=== PATIENT | male | born 1945 | race Caucasian/White ===

== ENCOUNTER 2022-09-07 19:44 | Emergency (ER) | payer MEDICARE ==
[2022-09-07 20:12] VITALS: BP 154/66; PULSE 57
[2022-09-07] MEDS ORDERED: Acetaminophen 500 MG Tab PO ONE (20:15)
== END 2022-09-07 21:40 | disposition home or self-care (01) ==
LOC: DL.ED 19:44
DX: S52.502A Unspecified fracture of the lower end of left radius, initial encounter for closed fracture (principal); I10 Essential (primary) hypertension; Z88.0 Allergy status to penicillin; Z88.1 Allergy status to other antibiotic agents; Z88.6 Allergy status to analgesic agent; Z88.8 Allergy status to other drugs, medicaments and biological substances; Z79.899 Other long term (current) drug therapy; W18.39XA Other fall on same level, initial encounter
CPT/HCPCS: 29125; 73090; 99283; A9270

== ENCOUNTER 2022-09-09 15:52 | Emergency (ER) | payer MEDICARE ==
[2022-09-09] MEDS ORDERED: Acetaminophen/HYDROcodone 325-10 MG Tab PO ONE (16:01)
[2022-09-09 16:26] VITALS: BP 171/86; PULSE 77
== END 2022-09-09 16:26 | disposition home or self-care (01) ==
LOC: DL.ED 15:52
DX: M25.532 Pain in left wrist (principal); I10 Essential (primary) hypertension; Z88.0 Allergy status to penicillin; Z88.1 Allergy status to other antibiotic agents; Z88.6 Allergy status to analgesic agent; Z79.899 Other long term (current) drug therapy
CPT/HCPCS: 99283; A9270

== ENCOUNTER 2023-11-28 14:13 | Emergency (ER) | payer MEDICARE, OTHER ==
[2023-11-28 15:59] VITALS: BP 156/103; PULSE 86
[2023-11-28] MEDS ORDERED: Lidocaine 1% with EPINEPHrine 1:100,000 20 ML MDV INJECT ONE (16:57)
[2023-11-28] MEDS: Diphtheria,Pertussis(Acell),Tetanus Vaccine 0.5 ML Syringe IM ONE (17:03)
== END 2023-11-28 18:06 | disposition left against medical advice (07) ==
LOC: DL.ED 14:13
DX: Z53.21 Procedure and treatment not carried out due to patient leaving prior to being seen by health care provider (principal)
CPT/HCPCS: 90715

== ENCOUNTER 2024-08-24 12:14 | Observation (INO) | payer MEDICARE ==
[2024-08-24 12:56] LABS: BASOPHILS PERCENT AUTO 0.6 % (0.0-1.0); EOSINOPHILS PERCENT AUTO 0.4 % (1.0-3.0); HEMATOCRIT 39.9 % (40.0-54.0); HEMOGLOBIN 13.4 g/dL (14.0-18.0); LYMPHOCYTES PERCENT AUTO 12.9 % (20.5-50.1); MEAN CORPUSCULAR HEMOGLOBIN 29.8 pg (27.0-34.0); MEAN CORPUSCULAR HGB CONC 33.6 g/dL (33.0-35.0); MEAN CORPUSCULAR VOLUME 88.9 fL (80-100); MONOCYTES PERCENT AUTO 10.8 % (2-8); NEUTROPHILS PERCENT AUTO 75.3 % (42.2-75.2); PLATELET COUNT,PLT 319 10^3/uL (150-450); RED BLOOD CELL COUNT 4.49 10^6/uL (4.6-6.2); WHITE BLOOD CELL COUNT,WBC 5.3 10^3/uL (5.0-10.0)
[2024-08-24] MEDS: Aspirin 81 MG Tab.Chew PO ONE (12:56)
[2024-08-24 13:12] LABS: PROTHROMBIN TIME 10.6 SEC (9.0-12.0)
[2024-08-24 13:20] LABS: A/G RATIO 1.1; ALBUMIN 3.4 g/dL (3.4-5.0); BILIRUBIN TOTAL 0.9 mg/dL (0.2-1.0); BUN/CREATININE RATIO 10.1 (No establ ref range); CALCIUM 8.9 mg/dL (8.5-10.1); CREATININE 0.79 mg/dL (0.70-1.30); EST CRCL DRUG DOSING (CG) 69.2 mL/min; MAGNESIUM 1.8 mg/dL (1.8-2.4); PROTEIN TOTAL,TP 6.6 g/dL (6.4-8.2)
[2024-08-24 13:26] LABS: ANION GAP 3.7 mEq/L (7-13); POTASSIUM,K 3.7 mmol/L (3.5-5.1)
[2024-08-24 13:51] LABS: APPEARANCE,URINE CLEAR (CLEAR); BILIRUBIN,URINE NEGATIVE (NEGATIVE); COLOR,URINE YELLOW (YELLOW); GLUCOSE,URINE NEGATIVE (NEGATIVE); KETONES,URINE NEGATIVE (NEGATIVE); LEUKOCYTE ESTERASE,URINE NEGATIVE (NEGATIVE); NITRITE,URINE NEGATIVE (NEGATIVE); OCCULT BLOOD,URINE TRACE-INTACT (NEGATIVE); PROTEIN,URINE NEGATIVE (NEGATIVE); UROBILINOGEN,URINE 0.2 mg/dL (0.2-1.0)
[2024-08-24 13:58] LABS: MUCUS,URINE RARE /LPF (NOT SEEN)
[2024-08-24 13:59] LABS: WBC,URINE NOT SEEN /HPF (0-5/HPF)
[2024-08-24 14:00] LABS: BACTERIA,URINE RARE /HPF (0-FEW/HPF); EPITHELIAL CELLS,URINE RARE /HPF (NOT SEEN); RBC,URINE 0-5 /HPF (0-5)
[2024-08-24] MEDS: Acetaminophen 325 MG Tab PO ONE (14:16)
[2024-08-24] MEDS: Furosemide 20 MG/2 ML VIAL IVPUSH ONE (14:16)
[2024-08-24] MEDS: FLU (Fluad Triv) TS24-25 (65UP)/MF59C/PF 45 MCG/0.5 ML Syringe IM ONE (15:47)
[2024-08-24] MEDS ORDERED: Ondansetron 4 MG/2 ML SDV IVPUSH PRN (16:18)
[2024-08-24] MEDS ORDERED: Docusate Sodium 100 MG Cap PO PRN (16:18)
[2024-08-24] MEDS ORDERED: oxyCODONE 5 MG Tab PO PRN (16:18)
[2024-08-24] MEDS ORDERED: Sodium Chloride 0.9% 10 ML Syringe FLUSH PRN (16:18)
[2024-08-24] MEDS ORDERED: Acetaminophen 325 MG Tab PO PRN (16:18)
[2024-08-24] MEDS: hydrALAZINE 20 MG/ML SDV IVPUSH PRN (16:21)
[2024-08-24 16:50] LABS: HEMOGLOBIN A1C 4.8 % (<5.7)
[2024-08-24] MEDS ORDERED: traMADol 50 MG Tab PO PRN (17:04)
[2024-08-24] MEDS ORDERED: HYDROCORTISONE PE APP RC PRN (17:04)
[2024-08-24] MEDS ORDERED: LORazepam 0.5 MG Tab PO PRN ×2 (17:04→17:18)
[2024-08-24] MEDS ORDERED: hydrOXYzine HCl 25 MG Tab PO PRN (17:04)
[2024-08-24] MEDS ORDERED: LIDOCAINE TRDERM PRN (17:04)
[2024-08-24] MEDS ORDERED: Baclofen 10 MG Tab PO PRN (17:29)
[2024-08-24] MEDS: Nicotine 21 MG/24 Hr Patch TRDERM SCH (17:57)
[2024-08-24] MEDS: Finasteride 5 MG Tab PO SCH (17:58)
[2024-08-24] MEDS: Multivitamins with Iron/Calcium/Folic Acid/Minerals Tab PO SCH (17:58)
[2024-08-24] MEDS: Enoxaparin 40 MG/0.4 ML Syringe SUBCUT SCH (17:58)
[2024-08-24] MEDS: Pantoprazole 40 MG Tab.CR PO SCH (17:58)
[2024-08-24] MEDS: Aspirin 81 MG Tab.Chew PO SCH (17:58)
[2024-08-24] MEDS: Diltiazem IR 30 MG Tab PO SCH (18:03)
[2024-08-24] MEDS ORDERED: Fluticasone NASAL Spray 16 GM Bottle NAS PRN (18:23)
[2024-08-24] MEDS: Amylase/Lipase/Protease 12,000 Unit Cap.CR PO SCH (20:07)
[2024-08-24] MEDS: Diclofenac Sodium 1% Gel 100 GM Tube TOP SCH (20:30)
[2024-08-24] MEDS: Calcium Polycarbophil 625 MG Tab PO SCH (20:30)
[2024-08-24] MEDS: Tamsulosin 0.4 MG Cap.ER PO SCH (20:30)
[2024-08-24] MEDS: Propranolol 20 MG Tab PO SCH (20:30)
[2024-08-24] MEDS: traZODone 50 MG Tab PO SCH (20:30)
[2024-08-24] MEDS: Amitriptyline 25 MG Tab PO SCH (20:30)
[2024-08-24] MEDS: Sodium Chloride 0.9% 10 ML Syringe FLUSH SCH (20:32)
[2024-08-25 06:41] LABS: ALBUMIN 2.6 g/dL (3.4-5.0); ANION GAP 9.3 mEq/L (7-13); BILIRUBIN TOTAL 0.7 mg/dL (0.2-1.0); BUN/CREATININE RATIO 10.5 (No establ ref range); CALCIUM 8.7 mg/dL (8.5-10.1); CREATININE 0.76 mg/dL (0.70-1.30); EST CRCL DRUG DOSING (CG) 57.3 mL/min; POTASSIUM,K 3.3 mmol/L (3.5-5.1); PROTEIN TOTAL,TP 5.3 g/dL (6.4-8.2)
[2024-08-25 06:43] LABS: A/G RATIO 0.96
[2024-08-25 07:43] VITALS: BP 109/57; PULSE 56
[2024-08-25] MEDS: Sertraline 50 MG Tab PO SCH (08:10)
[2024-08-25] MEDS: Levothyroxine 75 MCG Tab PO SCH (08:10)
[2024-08-25] MEDS: Ferrous Sulfate 325 MG Tab PO SCH (08:10)
[2024-08-25] MEDS: Losartan 50 MG Tab PO SCH (08:43)
[2024-08-25] MEDS ORDERED: Aspirin 81 MG Tab.Chew PO SCH (09:00)
[2024-08-25] MEDS: Potassium Chloride 10 MEQ Tab.ER PO ONE (11:39)
== END 2024-08-25 11:45 | disposition home or self-care (01) ==
LOC: DL.ED 12:14 → DL.MS 15:03
PROVIDERS: ADMIT Internal Medicine; ATTEND Internal Medicine
DX: I16.0 Hypertensive urgency (principal); I48.91 Unspecified atrial fibrillation; I11.0 Hypertensive heart disease with heart failure; I50.9 Heart failure, unspecified; D50.9 Iron deficiency anemia, unspecified; N40.0 Benign prostatic hyperplasia without lower urinary tract symptoms; F41.9 Anxiety disorder, unspecified; F32.A Depression, unspecified; K21.9 Gastro-esophageal reflux disease without esophagitis; Z87.891 Personal history of nicotine dependence; Z79.899 Other long term (current) drug therapy; Z88.0 Allergy status to penicillin; Z88.8 Allergy status to other drugs, medicaments and biological substances; Z88.5 Allergy status to narcotic agent
CPT/HCPCS: 36415; 71045; 80053; 81001; 83036; 83690; 83735; 83880; 84484; 85025; 85610; 87428; 93005; 96372; 96374; 96375; 99223; 99239; 99285; A9270; G0378; J0360; J1650; J1940; J3490

== ENCOUNTER 2025-01-22 10:25 | Emergency (ER) | payer MEDICARE, MEDICAID ==
[2025-01-22] MEDS ORDERED: Sodium Chloride 0.9% 10 ML Syringe FLUSH PRN (10:37)
[2025-01-22] MEDS: methylPREDNISolone Sodium Succinate 125 MG/2 ML SDV IVPUSH ONE (10:43)
[2025-01-22 10:57] LABS: BASOPHILS PERCENT AUTO 0.4 % (0.0-1.0); HEMATOCRIT 41.1 % (40.0-54.0); HEMOGLOBIN 13.9 g/dL (14.0-18.0); LYMPHOCYTES PERCENT AUTO 3.3 % (20.5-50.1); MEAN CORPUSCULAR HGB CONC 33.8 g/dL (33.0-35.0); MEAN CORPUSCULAR VOLUME 85.8 fL (80-100); MONOCYTES PERCENT AUTO 5.7 % (2-8); NEUTROPHILS PERCENT AUTO 90.6 % (42.2-75.2); PLATELET COUNT,PLT 409 10^3/uL (150-450); RED BLOOD CELL COUNT 4.79 10^6/uL (4.6-6.2); WHITE BLOOD CELL COUNT,WBC 9.7 10^3/uL (5.0-10.0)
[2025-01-22] MEDS: Albuterol/Ipratropium 3.0-0.5 MG/3 ML Neb Soln NEB ONE (11:00)
[2025-01-22 11:19] LABS: INR 1.1 (0.9-1.2); PROTHROMBIN TIME 11.7 SEC (9.0-12.0); PTT,PARTIAL THROMBOPLSTIN TIME 27.4 SEC (22.0-34.0)
[2025-01-22 11:21] LABS: A/G RATIO 0.68; ALANINE AMINOTRANSFERASE,ALT 19 U/L (16-63); ALBUMIN 2.5 g/dL (3.4-5.0); ALKALINE PHOSPHATASE 75 U/L (46-116); ANION GAP 12.6 mEq/L (7-13); ASPARTATE AMNIOTRANSFERASE,AST 21 U/L (15-37); B-TYPE NATRIURETIC PEPTIDE,BNP 1120 pg/ml (0-100); BILIRUBIN TOTAL 1.3 mg/dL (0.2-1.0); BLOOD UREA NITROGEN,BUN 14 mg/dL (7-18); BUN/CREATININE RATIO 20.3 (No establ ref range); C-REACTIVE PROTEIN 10.27 ng/dL (<=0.50); CALCIUM 8.7 mg/dL (8.5-10.1); CARBON DIOXIDE,CO2 28 mmol/L (21-32); CHLORIDE,CL 99 mmol/L (98-107); CREATININE 0.69 mg/dL (0.70-1.30); ESTIMATED GFR 95 mL/min (>=60); GLUCOSE RANDOM 152 mg/dL (70-99); MAGNESIUM 1.9 mg/dL (1.8-2.4); POTASSIUM,K 3.6 mmol/L (3.5-5.1); PROTEIN TOTAL,TP 6.2 g/dL (6.4-8.2); SODIUM,NA 136 mmol/L (136-145)
[2025-01-22 11:23] LABS: LACTIC ACID 2.3 mmol/L (0.4-2.0)
[2025-01-22] MEDS: Iopamidol 755 Mg/ML 100 ML Bottle IVPUSH ONE (11:28)
[2025-01-22 11:54] LABS: O2 DELIVERY DEVICE AEROSOL MASK
[2025-01-22 11:55] LABS: ALLEN TEST PERFORMED; BASE EXCESS ARTERIAL -2 mmol/L ((-2)-(+3)); BICARBONATE,ARTERIAL 21.2 mmol/L (22-26); O2 SATURATION ARTERIAL 92 % (95-100); PCO2 ARTERIAL 32 mmHg (35-45); PH,ARTERIAL 7.44 (7.35-7.45); PO2 ARTERIAL 66 mmHg (70-100)
[2025-01-22] MEDS: Furosemide 40 MG/4 ML VIAL IV ONE (12:31)
[2025-01-22] MEDS: Levofloxacin/Dextrose 5%-Water 750 MG in Premix Bag 1 BAG IV ONE (12:50)
[2025-01-22] MEDS: Metoprolol Tartrate 5 MG/5 ML SDV IVPUSH ONE (13:05)
[2025-01-22] MEDS: LORazepam 1 MG Tab PO ONE (15:50)
[2025-01-22 16:13] VITALS: BP 155/107; PULSE 123
== END 2025-01-22 16:02 ==
LOC: DL.ED 10:25
DX: J98.4 Other disorders of lung (principal); I48.91 Unspecified atrial fibrillation; J44.1 Chronic obstructive pulmonary disease with (acute) exacerbation; I11.0 Hypertensive heart disease with heart failure; I50.9 Heart failure, unspecified; K21.9 Gastro-esophageal reflux disease without esophagitis; M19.90 Unspecified osteoarthritis, unspecified site; Z88.1 Allergy status to other antibiotic agents; Z88.8 Allergy status to other drugs, medicaments and biological substances; Z79.899 Other long term (current) drug therapy; Z79.82 Long term (current) use of aspirin; Z79.890 Hormone replacement therapy; Z79.51 Long term (current) use of inhaled steroids; Z79.891 Long term (current) use of opiate analgesic; Z87.891 Personal history of nicotine dependence
CPT/HCPCS: 36415; 36600; 71045; 71275; 80053; 82803; 83605; 83735; 83880; 84484; 85025; 85379; 85610; 85730; 86140; 87040; 87428-QW; 93005; 93010; 94640; 96365; 96375; 99285; 99285-25; A9270-GY; J1940; J1956; J2919; J3490; Q9967

== ENCOUNTER 2025-01-31 12:31 | Inpatient (IN) | payer MEDICARE, MEDICAID ==
[2025-01-31 13:36] LABS: BASOPHILS PERCENT AUTO 0.2 % (0.0-1.0); EOSINOPHILS PERCENT AUTO 0.2 % (1.0-3.0); HEMATOCRIT 40.7 % (40.0-54.0); HEMOGLOBIN 13.5 g/dL (14.0-18.0); LYMPHOCYTES PERCENT AUTO 4.1 % (20.5-50.1); MEAN CORPUSCULAR HEMOGLOBIN 29.2 pg (27.0-34.0); MEAN CORPUSCULAR HGB CONC 33.2 g/dL (33.0-35.0); MEAN CORPUSCULAR VOLUME 87.9 fL (80-100); NEUTROPHILS PERCENT AUTO 89.5 % (42.2-75.2); PLATELET COUNT,PLT 482 10^3/uL (150-450); RED BLOOD CELL COUNT 4.63 10^6/uL (4.6-6.2); WHITE BLOOD CELL COUNT,WBC 12.6 10^3/uL (5.0-10.0)
[2025-01-31 13:55] LABS: INR 1.2 (0.9-1.2); PROTHROMBIN TIME 12.1 SEC (9.0-12.0); PTT,PARTIAL THROMBOPLSTIN TIME 33.5 SEC (22.0-34.0)
[2025-01-31 13:57] LABS: A/G RATIO 0.64; ALANINE AMINOTRANSFERASE,ALT 39 U/L (16-63); ALBUMIN 2.3 g/dL (3.4-5.0); ALKALINE PHOSPHATASE 63 U/L (46-116); ANION GAP 11.3 mEq/L (7-13); ASPARTATE AMNIOTRANSFERASE,AST 36 U/L (15-37); BILIRUBIN TOTAL 0.9 mg/dL (0.2-1.0); BLOOD UREA NITROGEN,BUN 17 mg/dL (7-18); BUN/CREATININE RATIO 21.2 (No establ ref range); CALCIUM 8.4 mg/dL (8.5-10.1); CARBON DIOXIDE,CO2 29 mmol/L (21-32); CHLORIDE,CL 101 mmol/L (98-107); ESTIMATED GFR 91 mL/min (>=60); GLUCOSE RANDOM 93 mg/dL (70-99); POTASSIUM,K 4.3 mmol/L (3.5-5.1); PROTEIN TOTAL,TP 5.9 g/dL (6.4-8.2); SODIUM,NA 137 mmol/L (136-145)
[2025-01-31] MEDS ORDERED: Albuterol 6.7 GM Inhaler INH PRN (14:32)
[2025-01-31 14:59] LABS: T4 FREE 1.13 ng/dL (0.76-1.46); TSH ULTRASENSITIVE 13.74 uIU/mL (0.36-3.74)
[2025-01-31] MEDS ORDERED: Polyethylene Glycol 3350 Powder 17 GM Packet PO PRN (15:27)
[2025-01-31] MEDS ORDERED: Melatonin 3 MG Tab PO PRN (15:27)
[2025-01-31] MEDS ORDERED: Sennosides/Docusate Sodium 50-8.6 MG Tab PO PRN (15:27)
[2025-01-31] MEDS ORDERED: Docusate Sodium 100 MG Cap PO PRN (15:27)
[2025-01-31] MEDS ORDERED: hydrOXYzine HCl 25 MG Tab PO PRN (17:21)
[2025-01-31] MEDS ORDERED: traMADol 50 MG Tab PO PRN (17:23)
[2025-01-31 17:46] LABS: CORONAVIRUS COVID-19 NAA NEGATIVE (NEGATIVE); INFLUENZA A NAA NEGATIVE (NEGATIVE); INFLUENZA B NAA NEGATIVE (NEGATIVE)
[2025-01-31] MEDS: Albuterol/Ipratropium 3.0-0.5 MG/3 ML Neb Soln NEB PRN (17:51)
[2025-01-31] MEDS: atorvaSTATin 20 MG Tab PO SCH (21:25)
[2025-01-31] MEDS: Apixaban 5 MG Tab PO SCH (21:25)
[2025-02-01] MEDS: Levothyroxine 50 MCG Tab PO SCH (05:17)
[2025-02-01 06:49] LABS: BASOPHILS PERCENT AUTO 0.3 % (0.0-1.0); EOSINOPHILS PERCENT AUTO 1.7 % (1.0-3.0); HEMATOCRIT 35.9 % (40.0-54.0); HEMOGLOBIN 11.5 g/dL (14.0-18.0); LYMPHOCYTES PERCENT AUTO 8.1 % (20.5-50.1); MEAN CORPUSCULAR HEMOGLOBIN 28.5 pg (27.0-34.0); MEAN CORPUSCULAR VOLUME 88.9 fL (80-100); MONOCYTES PERCENT AUTO 8.8 % (2-8); NEUTROPHILS PERCENT AUTO 81.1 % (42.2-75.2); PLATELET COUNT,PLT 382 10^3/uL (150-450); RED BLOOD CELL COUNT 4.04 10^6/uL (4.6-6.2); WHITE BLOOD CELL COUNT,WBC 7.9 10^3/uL (5.0-10.0)
[2025-02-01 07:23] LABS: PERCENT FE SATURATION 14.7 % (20.0-50.0)
[2025-02-01] MEDS: Tamsulosin 0.4 MG Cap.ER PO SCH (09:08)
[2025-02-01] MEDS: Thiamine 100 MG Tab PO SCH (09:08)
[2025-02-01] MEDS: Aspirin 81 MG Tab.Chew PO SCH (09:08)
[2025-02-01] MEDS: Metoprolol Succinate 25 MG Tab.ER PO SCH (09:08)
[2025-02-01] MEDS: Vitamin B Complex Cap PO SCH (09:08)
[2025-02-01] MEDS: Pantoprazole 40 MG Tab.CR PO SCH (09:08)
[2025-02-01 09:18] LABS: APPEARANCE,URINE CLEAR (CLEAR); BILIRUBIN,URINE NEGATIVE (NEGATIVE); COLOR,URINE DARK YELLOW (YELLOW); GLUCOSE,URINE NEGATIVE (NEGATIVE); KETONES,URINE NEGATIVE (NEGATIVE); LEUKOCYTE ESTERASE,URINE NEGATIVE (NEGATIVE); NITRITE,URINE NEGATIVE (NEGATIVE); OCCULT BLOOD,URINE MODERATE (NEGATIVE); PROTEIN,URINE TRACE (NEGATIVE); UROBILINOGEN,URINE 0.2 mg/dL (0.2-1.0)
[2025-02-01 09:29] LABS: BACTERIA,URINE RARE /HPF (0-FEW/HPF); EPITHELIAL CELLS,URINE RARE /HPF (NOT SEEN); MUCUS,URINE FEW /LPF (NOT SEEN); RBC,URINE 40-50 /HPF (0-5); WBC,URINE 0-5 /HPF (0-5/HPF)
[2025-02-01] MEDS: Azithromycin 250 MG Tab PO SCH (11:30)
[2025-02-01] MEDS: predniSONE 20 MG Tab PO SCH (11:30)
[2025-02-01] MEDS: Formoterol/Mometasone 200-5 MCG 8.8 GM Inhaler INH SCH (16:40)
[2025-02-01] MEDS: Amylase/Lipase/Protease 12,000 Unit Cap.CR PO SCH (17:42)
[2025-02-01] MEDS ORDERED: Formoterol/Mometasone 200-5 MCG 8.8 GM Inhaler INH SCH (18:00)
[2025-02-02] MEDS: Empagliflozin 10 MG Tab PO SCH (12:13)
[2025-02-03 06:39] LABS: BASOPHILS PERCENT AUTO 0.3 % (0.0-1.0); EOSINOPHILS PERCENT AUTO 0.3 % (1.0-3.0); HEMATOCRIT 32.8 % (40.0-54.0); HEMOGLOBIN 10.5 g/dL (14.0-18.0); MEAN CORPUSCULAR HEMOGLOBIN 28.7 pg (27.0-34.0); MEAN CORPUSCULAR VOLUME 89.6 fL (80-100); MONOCYTES PERCENT AUTO 7.6 % (2-8); NEUTROPHILS PERCENT AUTO 84.8 % (42.2-75.2); PLATELET COUNT,PLT 433 10^3/uL (150-450); RED BLOOD CELL COUNT 3.66 10^6/uL (4.6-6.2); WHITE BLOOD CELL COUNT,WBC 11.1 10^3/uL (5.0-10.0)
[2025-02-03 07:00] LABS: ALBUMIN 1.9 g/dL (3.4-5.0); ANION GAP 7.4 mEq/L (7-13); BILIRUBIN TOTAL 0.4 mg/dL (0.2-1.0); BUN/CREATININE RATIO 39.4 (No establ ref range); CALCIUM 8.3 mg/dL (8.5-10.1); CREATININE 0.66 mg/dL (0.70-1.30); EST CRCL DRUG DOSING (CG) 66.93 mL/min; POTASSIUM,K 4.4 mmol/L (3.5-5.1); PROTEIN TOTAL,TP 4.9 g/dL (6.4-8.2)
[2025-02-03 07:03] LABS: A/G RATIO 0.63
[2025-02-03] MEDS ORDERED: Lidocaine 5% Oint 35.44 GM Tube TOP PRN (11:08)
[2025-02-03] MEDS: Furosemide 20 MG Tab PO SCH (12:00)
[2025-02-04] MEDS: Furosemide 40 MG Tab PO ONE (12:05)
[2025-02-05] MEDS: Acetaminophen 325 MG Tab PO PRN (01:22)
[2025-02-05 06:11] LABS: BASOPHILS PERCENT AUTO 0.1 % (0.0-1.0); EOSINOPHILS PERCENT AUTO 0.1 % (1.0-3.0); HEMATOCRIT 34.2 % (40.0-54.0); HEMOGLOBIN 11.5 g/dL (14.0-18.0); LYMPHOCYTES PERCENT AUTO 7.8 % (20.5-50.1); MEAN CORPUSCULAR HEMOGLOBIN 29.5 pg (27.0-34.0); MEAN CORPUSCULAR HGB CONC 33.6 g/dL (33.0-35.0); MEAN CORPUSCULAR VOLUME 87.7 fL (80-100); MONOCYTES PERCENT AUTO 9.8 % (2-8); NEUTROPHILS PERCENT AUTO 82.2 % (42.2-75.2); PLATELET COUNT,PLT 466 10^3/uL (150-450); WHITE BLOOD CELL COUNT,WBC 10.1 10^3/uL (5.0-10.0)
[2025-02-05 06:35] LABS: BILIRUBIN TOTAL 0.3 mg/dL (0.2-1.0); BUN/CREATININE RATIO 42.3 (No establ ref range); CALCIUM 8.4 mg/dL (8.5-10.1); CREATININE 0.71 mg/dL (0.70-1.30); EST CRCL DRUG DOSING (CG) 61.6 mL/min; MAGNESIUM 1.9 mg/dL (1.8-2.4); PROTEIN TOTAL,TP 5.1 g/dL (6.4-8.2)
[2025-02-05 06:36] LABS: A/G RATIO 0.65
[2025-02-05] MEDS: Bumetanide 1 MG Tab PO ONE (11:40)
[2025-02-05] MEDS: Ondansetron 4 MG Tab.DIS PO PRN (11:40)
[2025-02-05] MEDS: Potassium Chloride 10 MEQ Tab.ER PO ONE (11:42)
[2025-02-05 12:31] VITALS: BP 132/61; PULSE 94
== END 2025-02-05 16:35 | disposition home or self-care (01) | DRG 948 ==
LOC: DL.MS 12:46
PROVIDERS: ADMIT Student in an Organized Health Care Education/Training Program; ATTEND Student in an Organized Health Care Education/Training Program
DX: R53.81 Other malaise (principal); I50.22 Chronic systolic (congestive) heart failure; J44.1 Chronic obstructive pulmonary disease with (acute) exacerbation; I48.91 Unspecified atrial fibrillation; J44.9 Chronic obstructive pulmonary disease, unspecified; H54.7 Unspecified visual loss; I11.0 Hypertensive heart disease with heart failure; K21.9 Gastro-esophageal reflux disease without esophagitis; N40.0 Benign prostatic hyperplasia without lower urinary tract symptoms; F41.9 Anxiety disorder, unspecified; F32.A Depression, unspecified; D69.6 Thrombocytopenia, unspecified; E88.09 Other disorders of plasma-protein metabolism, not elsewhere classified; K86.89 Other specified diseases of pancreas; E03.9 Hypothyroidism, unspecified; D63.8 Anemia in other chronic diseases classified elsewhere; Z79.899 Other long term (current) drug therapy; Z88.8 Allergy status to other drugs, medicaments and biological substances; Z79.01 Long term (current) use of anticoagulants; Z87.891 Personal history of nicotine dependence; Z79.82 Long term (current) use of aspirin; Z99.81 Dependence on supplemental oxygen; Z88.0 Allergy status to penicillin
CPT/HCPCS: 0240U; 36415; 71046; 80053; 81001; 82728; 83540; 83550; 83735; 84439; 84443; 85014; 85018; 85025; 85610; 85730; 87493; 94618; 94640; 94664; 97116-GP; 97161-GP; 97165-GO; 97530-GO; 97530-GP; 99306; 99309; 99315; A9270-GY; J7512

== ENCOUNTER 2025-02-25 13:36 | Emergency (ER) | payer MEDICARE, MEDICAID ==
[2025-02-25] MEDS: Lidocaine 2% Jelly 10 ML Urojet MUCMEM ONE (14:18)
[2025-02-25 14:58] VITALS: BP 128/70; PULSE 114
== END 2025-02-25 14:58 | disposition home or self-care (01) ==
LOC: DL.ED 13:36
DX: T83.9XXA Unspecified complication of genitourinary prosthetic device, implant and graft, initial encounter (principal); N48.9 Disorder of penis, unspecified; Z74.1 Need for assistance with personal care
CPT/HCPCS: 99283; 99284; A9270

== ENCOUNTER 2025-02-28 16:23 | Emergency (ER) | payer MEDICARE, MEDICAID | END 2025-02-28 16:40 | disposition left against medical advice (07) | LOC: DL.ED 16:23 | DX: Z46.6 Encounter for fitting and adjustment of urinary device (principal) | CPT/HCPCS: 99281 ==

== ENCOUNTER 2025-03-08 11:29 | Emergency (ER) | payer MEDICARE, MEDICAID ==
[2025-03-08 11:40] VITALS: BP 134/66; PULSE 96
== END 2025-03-08 12:25 | disposition home or self-care (01) ==
LOC: DL.ED 11:29
DX: T83.031A Leakage of indwelling urethral catheter, initial encounter (principal); I10 Essential (primary) hypertension; I48.91 Unspecified atrial fibrillation; K21.9 Gastro-esophageal reflux disease without esophagitis; Z88.8 Allergy status to other drugs, medicaments and biological substances; Z79.82 Long term (current) use of aspirin; Z79.899 Other long term (current) drug therapy; Z79.01 Long term (current) use of anticoagulants; Z79.02 Long term (current) use of antithrombotics/antiplatelets; Z87.891 Personal history of nicotine dependence; Y84.6 Urinary catheterization as the cause of abnormal reaction of the patient, or of later complication, without mention of misadventure at the time of the procedure
CPT/HCPCS: 99283

== ENCOUNTER 2025-03-16 11:11 | Emergency (ER) | payer MEDICARE, MEDICAID ==
[2025-03-16 12:02] VITALS: PULSE 86
[2025-03-16 12:22] LABS: BASOPHILS PERCENT AUTO 0.3 % (0.0-1.0); EOSINOPHILS PERCENT AUTO 0.2 % (1.0-3.0); HEMATOCRIT 38.6 % (40.0-54.0); HEMOGLOBIN 12.8 g/dL (14.0-18.0); MEAN CORPUSCULAR HEMOGLOBIN 29.5 pg (27.0-34.0); MEAN CORPUSCULAR HGB CONC 33.2 g/dL (33.0-35.0); MEAN CORPUSCULAR VOLUME 88.9 fL (80-100); MONOCYTES PERCENT AUTO 9.1 % (2-8); NEUTROPHILS PERCENT AUTO 76.4 % (42.2-75.2); PLATELET COUNT,PLT 352 10^3/uL (150-450); RED BLOOD CELL COUNT 4.34 10^6/uL (4.6-6.2); WHITE BLOOD CELL COUNT,WBC 5.9 10^3/uL (5.0-10.0)
[2025-03-16 12:29] VITALS: BP 156/93
[2025-03-16 12:38] LABS: ALBUMIN 2.7 g/dL (3.4-5.0); ANION GAP 10.5 mEq/L (7-13); BILIRUBIN TOTAL 0.9 mg/dL (0.2-1.0); BUN/CREATININE RATIO 12.1 (No establ ref range); CALCIUM 8.7 mg/dL (8.5-10.1); CREATININE 0.91 mg/dL (0.70-1.30); EST CRCL DRUG DOSING (CG) 48.24 mL/min; MAGNESIUM 2.2 mg/dL (1.8-2.4); POTASSIUM,K 3.5 mmol/L (3.5-5.1); PROTEIN TOTAL,TP 6.1 g/dL (6.4-8.2)
[2025-03-16 12:44] LABS: A/G RATIO 0.79
== END 2025-03-16 13:20 | disposition home or self-care (01) ==
LOC: DL.ED 11:11
DX: I10 Essential (primary) hypertension (principal); F41.9 Anxiety disorder, unspecified; I48.91 Unspecified atrial fibrillation; K21.9 Gastro-esophageal reflux disease without esophagitis; Z88.0 Allergy status to penicillin; Z88.1 Allergy status to other antibiotic agents; Z88.5 Allergy status to narcotic agent; Z88.8 Allergy status to other drugs, medicaments and biological substances; Z79.82 Long term (current) use of aspirin; Z79.899 Other long term (current) drug therapy; Z79.01 Long term (current) use of anticoagulants
CPT/HCPCS: 36415; 80053; 83735; 84484; 85025; 99283

== ENCOUNTER 2025-04-09 14:31 | Emergency (ER) | payer MEDICARE, MEDICAID ==
[2025-04-09 15:34] VITALS: BP 131/85; PULSE 98
== END 2025-04-09 15:21 | disposition home or self-care (01) ==
LOC: DL.ED 14:31
DX: T83.031A Leakage of indwelling urethral catheter, initial encounter (principal); Z88.0 Allergy status to penicillin; Z88.5 Allergy status to narcotic agent; Z88.8 Allergy status to other drugs, medicaments and biological substances; Z79.82 Long term (current) use of aspirin; Z79.51 Long term (current) use of inhaled steroids; Z79.01 Long term (current) use of anticoagulants; Z79.899 Other long term (current) drug therapy; Y84.6 Urinary catheterization as the cause of abnormal reaction of the patient, or of later complication, without mention of misadventure at the time of the procedure
CPT/HCPCS: 51702; 99283

== ENCOUNTER 2025-04-21 16:35 | Emergency (ER) | payer MEDICARE, MEDICAID ==
[2025-04-21 16:58] VITALS: BP 120/69; PULSE 89
== END 2025-04-21 16:57 | disposition left against medical advice (07) ==
LOC: DL.ED 16:35
DX: T83.091A Other mechanical complication of indwelling urethral catheter, initial encounter (principal)
CPT/HCPCS: 99281

== ENCOUNTER 2025-05-19 12:12 | Emergency (ER) | payer MEDICARE, MEDICAID | END 2025-05-19 13:03 | disposition left against medical advice (07) | LOC: DL.ED 12:12 | DX: Z53.21 Procedure and treatment not carried out due to patient leaving prior to being seen by health care provider (principal) ==

== ENCOUNTER 2025-06-03 16:11 | Inpatient (IN) | payer MEDICARE, MEDICAID ==
[2025-06-03 16:51] LABS: BASOPHILS PERCENT AUTO 0.4 % (0.0-1.0); EOSINOPHILS PERCENT AUTO 0.4 % (1.0-3.0); LYMPHOCYTES PERCENT AUTO 10.9 % (20.5-50.1); MONOCYTES PERCENT AUTO 6.6 % (2-8); NEUTROPHILS PERCENT AUTO 81.7 % (42.2-75.2); PLATELET COUNT,PLT 287 10^3/uL (150-450); RED BLOOD CELL COUNT 4.40 10^6/uL (4.6-6.2); WHITE BLOOD CELL COUNT,WBC 7.6 10^3/uL (5.0-10.0)
[2025-06-03 17:07] LABS: ALANINE AMINOTRANSFERASE,ALT 22.0 U/L (16-63); ASPARTATE AMNIOTRANSFERASE,AST 22.0 U/L (15-37); BILIRUBIN TOTAL 0.8 mg/dL (0.2-1.0); BLOOD UREA NITROGEN,BUN 15.0 mg/dL (7-18); CARBON DIOXIDE,CO2 27.0 mmol/L (21-32); CREATININE 0.87 mg/dL (0.70-1.30); EST CRCL DRUG DOSING (CG) 52.92 mL/min; GLUCOSE RANDOM 119.0 mg/dL (70-99); PROTEIN TOTAL,TP 6.3 g/dL (6.4-8.2)
[2025-06-03 17:12] LABS: A/G RATIO 1.1; B-TYPE NATRIURETIC PEPTIDE,BNP 1880.0 pg/ml (0-100); CHLORIDE,CL 100.0 mmol/L (98-107); ESTIMATED GFR 89.0 mL/min (>=60); POTASSIUM,K 4.0 mmol/L (3.5-5.1); SODIUM,NA 133.0 mmol/L (136-145)
[2025-06-03 17:26] LABS: INR 1.0 (0.9-1.2); PTT,PARTIAL THROMBOPLSTIN TIME 27.3 SEC (22.0-34.0)
[2025-06-03] MEDS: Metoprolol Tartrate 5 MG/5 ML SDV IVPUSH ONE (18:31)
[2025-06-03] MEDS: Furosemide 40 MG/4 ML VIAL IVPUSH ONE (18:31)
[2025-06-03] MEDS: Sodium Chloride 0.9% 10 ML Syringe FLUSH PRN (18:32)
[2025-06-03] MEDS ORDERED: hydrALAZINE 20 MG/ML SDV IVPUSH PRN (20:27)
[2025-06-03] MEDS ORDERED: Ondansetron 4 MG/2 ML SDV IVPUSH PRN (21:20)
[2025-06-03] MEDS ORDERED: Magnesium Hydroxide 400 MG/5 ML Susp 30 ML Cup PO PRN (21:20)
[2025-06-03 21:49] LABS: T4 FREE 0.95 ng/dL (0.76-1.46); TSH ULTRASENSITIVE 10.06 uIU/mL (0.36-3.74)
[2025-06-04] MEDS: Albumin Human 25 GM in Premix Bag 1 BAG IV SCH (00:06)
[2025-06-04] MEDS ORDERED: Nystatin Topical Powder 60 GM Bottle TOP PRN (00:25)
[2025-06-04] MEDS: Dexamethasone 4 MG/ML SDV IVPUSH SCH (02:57)
[2025-06-04 06:34] LABS: BASOPHILS PERCENT AUTO 0.1 % (0.0-1.0); EOSINOPHILS PERCENT AUTO 0.7 % (1.0-3.0); LYMPHOCYTES PERCENT AUTO 7.3 % (20.5-50.1); MONOCYTES PERCENT AUTO 2.7 % (2-8); NEUTROPHILS PERCENT AUTO 89.2 % (42.2-75.2); PLATELET COUNT,PLT 281 10^3/uL (150-450); RED BLOOD CELL COUNT 4.19 10^6/uL (4.6-6.2); WHITE BLOOD CELL COUNT,WBC 7.1 10^3/uL (5.0-10.0)
[2025-06-04 06:54] LABS: A/G RATIO 1.5; ALANINE AMINOTRANSFERASE,ALT 19.0 U/L (16-63); ASPARTATE AMNIOTRANSFERASE,AST 18.0 U/L (15-37); BILIRUBIN TOTAL 0.9 mg/dL (0.2-1.0); BLOOD UREA NITROGEN,BUN 16.0 mg/dL (7-18); CARBON DIOXIDE,CO2 30.0 mmol/L (21-32); CHLORIDE,CL 101.0 mmol/L (98-107); CREATININE 0.71 mg/dL (0.70-1.30); EST CRCL DRUG DOSING (CG) 60.99 mL/min; GLUCOSE RANDOM 112.0 mg/dL (70-99); POTASSIUM,K 3.5 mmol/L (3.5-5.1); PROTEIN TOTAL,TP 6.2 g/dL (6.4-8.2); SODIUM,NA 141.0 mmol/L (136-145)
[2025-06-04] MEDS: Tiotropium Bromide 4 GM Inhalation Spray (2.5mcg/1 dose; 10 doses) INH SCH (06:54)
[2025-06-04] MEDS: Formoterol/Mometasone 200-5 MCG 8.8 GM Inhaler INH SCH (06:54)
[2025-06-04 06:55] LABS: ESTIMATED GFR 95.0 mL/min (>=60)
[2025-06-04] MEDS: Metoprolol Tartrate 5 MG/5 ML SDV IVPUSH PRN (14:48)
[2025-06-05 06:21] LABS: BASOPHILS PERCENT AUTO 0.2 % (0.0-1.0); EOSINOPHILS PERCENT AUTO 0.0 % (1.0-3.0); LYMPHOCYTES PERCENT AUTO 5.9 % (20.5-50.1); MONOCYTES PERCENT AUTO 4.6 % (2-8); NEUTROPHILS PERCENT AUTO 89.3 % (42.2-75.2); PLATELET COUNT,PLT 209 10^3/uL (150-450); RED BLOOD CELL COUNT 3.59 10^6/uL (4.6-6.2); WHITE BLOOD CELL COUNT,WBC 6.6 10^3/uL (5.0-10.0)
[2025-06-05 06:48] LABS: A/G RATIO 2.2; ALANINE AMINOTRANSFERASE,ALT 19.0 U/L (16-63); ASPARTATE AMNIOTRANSFERASE,AST 12.0 U/L (15-37); BILIRUBIN TOTAL 0.7 mg/dL (0.2-1.0); BLOOD UREA NITROGEN,BUN 19.0 mg/dL (7-18); CARBON DIOXIDE,CO2 30.0 mmol/L (21-32); CHLORIDE,CL 101.0 mmol/L (98-107); CREATININE 1.02 mg/dL (0.70-1.30); EST CRCL DRUG DOSING (CG) 41.13 mL/min; GLUCOSE RANDOM 149.0 mg/dL (70-99); POTASSIUM,K 3.2 mmol/L (3.5-5.1); PROTEIN TOTAL,TP 6.4 g/dL (6.4-8.2); SODIUM,NA 139.0 mmol/L (136-145)
[2025-06-05 06:53] LABS: ESTIMATED GFR 76.0 mL/min (>=60)
[2025-06-05] MEDS: Potassium Chloride 10 MEQ Tab.ER PO ONE (11:36)
[2025-06-05 18:34] VITALS: BP 130/71; PULSE 80
== END 2025-06-05 19:20 | disposition home or self-care (01) | DRG 291 ==
LOC: DL.ED 16:11 → DL.MS 19:04
PROVIDERS: ADMIT Internal Medicine; ATTEND Internal Medicine
DX: I11.0 Hypertensive heart disease with heart failure (principal); I50.23 Acute on chronic systolic (congestive) heart failure; I50.9 Heart failure, unspecified; J44.1 Chronic obstructive pulmonary disease with (acute) exacerbation; E87.1 Hypo-osmolality and hyponatremia; Z79.890 Hormone replacement therapy; E44.0 Moderate protein-calorie malnutrition; K86.1 Other chronic pancreatitis; I48.91 Unspecified atrial fibrillation; J44.9 Chronic obstructive pulmonary disease, unspecified; K21.9 Gastro-esophageal reflux disease without esophagitis; N40.0 Benign prostatic hyperplasia without lower urinary tract symptoms; D64.9 Anemia, unspecified; F32.A Depression, unspecified; H54.7 Unspecified visual loss; F41.9 Anxiety disorder, unspecified; M19.90 Unspecified osteoarthritis, unspecified site; M54.32 Sciatica, left side; M54.31 Sciatica, right side; R73.9 Hyperglycemia, unspecified; E88.09 Other disorders of plasma-protein metabolism, not elsewhere classified; D50.9 Iron deficiency anemia, unspecified; Z87.891 Personal history of nicotine dependence; Z99.81 Dependence on supplemental oxygen; Z88.8 Allergy status to other drugs, medicaments and biological substances; Z79.899 Other long term (current) drug therapy; Z79.82 Long term (current) use of aspirin; Z68.20 Body mass index [BMI] 20.0-20.9, adult; Z79.01 Long term (current) use of anticoagulants; Z88.0 Allergy status to penicillin
CPT/HCPCS: 36415; 71045; 80053; 83605; 83735; 83880; 84439; 84443; 84484 ×2; 85025; 85610; 85730; 87426; 93005; 93010; 96374; 96375; 99285 ×2; J1938; J3490; 93306; 94664; A9270-GY; J1100; J1171; P9047

== ENCOUNTER 2025-06-10 09:03 | Inpatient (IN) | payer MEDICARE, MEDICAID ==
[2025-06-10 09:43] LABS: BASOPHILS PERCENT AUTO 0.4 % (0.0-1.0); EOSINOPHILS PERCENT AUTO 0.4 % (1.0-3.0); LYMPHOCYTES PERCENT AUTO 10.9 % (20.5-50.1); MONOCYTES PERCENT AUTO 9.5 % (2-8); NEUTROPHILS PERCENT AUTO 78.8 % (42.2-75.2); PLATELET COUNT,PLT 325 10^3/uL (150-450); RED BLOOD CELL COUNT 4.06 10^6/uL (4.6-6.2); WHITE BLOOD CELL COUNT,WBC 9.3 10^3/uL (5.0-10.0)
[2025-06-10 10:00] LABS: B-TYPE NATRIURETIC PEPTIDE,BNP 2210 pg/ml (0-100)
[2025-06-10 10:36] LABS: A/G RATIO 1.5; ALANINE AMINOTRANSFERASE,ALT 42 U/L (16-63); ASPARTATE AMNIOTRANSFERASE,AST 28 U/L (15-37); BILIRUBIN TOTAL 1.2 mg/dL (0.2-1.0); BLOOD UREA NITROGEN,BUN 16 mg/dL (7-18); CARBON DIOXIDE,CO2 27 mmol/L (21-32); CHLORIDE,CL 100 mmol/L (98-107); CREATININE 0.60 mg/dL (0.70-1.30); ESTIMATED GFR 99 mL/min (>=60); GLUCOSE RANDOM 125 mg/dL (70-99); PHOSPHORUS 3.5 mg/dL (2.6-4.7); POTASSIUM,K 4.0 mmol/L (3.5-5.1); PROTEIN TOTAL,TP 6.8 g/dL (6.4-8.2); SODIUM,NA 135 mmol/L (136-145)
[2025-06-10] MEDS: Furosemide 40 MG/4 ML VIAL IVPUSH ONE (10:44)
[2025-06-10] MEDS ORDERED: Sennosides/Docusate Sodium 50-8.6 MG Tab PO PRN (11:44)
[2025-06-10] MEDS ORDERED: Ondansetron 4 MG/2 ML SDV IVPUSH PRN (11:44)
[2025-06-10] MEDS ORDERED: Sodium Chloride 0.9% 10 ML Syringe FLUSH PRN (11:44)
[2025-06-10 13:00] LABS: APPEARANCE,URINE CLEAR (CLEAR); GLUCOSE,URINE NEGATIVE (NEGATIVE); OCCULT BLOOD,URINE TRACE-INTACT (NEGATIVE)
[2025-06-10 13:10] LABS: EPITHELIAL CELLS,URINE NOT SEEN /HPF (NOT SEEN)
[2025-06-10] MEDS: Bumetanide 1 MG/4 ML MDV IVPUSH ONE (13:29)
[2025-06-10] MEDS: Potassium Chloride 10 MEQ Tab.ER PO ONE ×2 (13:30→19:28)
[2025-06-10 13:42] LABS: T4 FREE 0.87 ng/dL (0.76-1.46); TSH ULTRASENSITIVE 8.83 uIU/mL (0.36-3.74)
[2025-06-10 13:48] LABS: IRON,FE 85.0 ug/dL (65-175)
[2025-06-10 14:35] LABS: PERCENT FE SATURATION 28.5 % (20.0-50.0)
[2025-06-10 15:31] LABS: FOLIC ACID > 20.0 ng/mL (8.6-58.9)
[2025-06-10] MEDS: Amylase/Lipase/Protease 12,000 Unit Cap.CR PO SCH (16:08)
[2025-06-10] MEDS: Formoterol/Mometasone 200-5 MCG 8.8 GM Inhaler INH SCH (19:27)
[2025-06-10] MEDS: Sodium Chloride 0.9% 10 ML Syringe FLUSH SCH (22:48)
[2025-06-11 06:14] LABS: BASOPHILS PERCENT AUTO 0.5 % (0.0-1.0); EOSINOPHILS PERCENT AUTO 1.3 % (1.0-3.0); LYMPHOCYTES PERCENT AUTO 17.4 % (20.5-50.1); MONOCYTES PERCENT AUTO 10.3 % (2-8); NEUTROPHILS PERCENT AUTO 70.5 % (42.2-75.2); PLATELET COUNT,PLT 345 10^3/uL (150-450); RED BLOOD CELL COUNT 4.44 10^6/uL (4.6-6.2); WHITE BLOOD CELL COUNT,WBC 7.7 10^3/uL (5.0-10.0)
[2025-06-11 06:45] LABS: A/G RATIO 1.4; ALANINE AMINOTRANSFERASE,ALT 46.0 U/L (16-63); ASPARTATE AMNIOTRANSFERASE,AST 32.0 U/L (15-37); BILIRUBIN TOTAL 1.6 mg/dL (0.2-1.0); BLOOD UREA NITROGEN,BUN 22.0 mg/dL (7-18); CARBON DIOXIDE,CO2 32.0 mmol/L (21-32); CHLORIDE,CL 100.0 mmol/L (98-107); CREATININE 0.63 mg/dL (0.70-1.30); EST CRCL DRUG DOSING (CG) 68.04 mL/min; GLUCOSE RANDOM 80.0 mg/dL (70-99); POTASSIUM,K 3.8 mmol/L (3.5-5.1); PROTEIN TOTAL,TP 6.7 g/dL (6.4-8.2); SODIUM,NA 140.0 mmol/L (136-145)
[2025-06-11 06:50] LABS: ESTIMATED GFR 98.0 mL/min (>=60)
[2025-06-11] MEDS ORDERED: Albuterol 0.083% 2.5 MG/3 ML Neb Soln NEB PRN (07:08)
[2025-06-11] MEDS: methylPREDNISolone Sodium Succinate 40 MG/1 ML SDV IVPUSH ONE (10:47)
[2025-06-11] MEDS: Bumetanide 1 MG/4 ML MDV IVPUSH SCH (14:05)
[2025-06-11] MEDS: Potassium Chloride 10 MEQ Tab.ER PO SCH (14:05)
[2025-06-11] MEDS: methylPREDNISolone Sodium Succinate 40 MG/1 ML SDV IVPUSH SCH (20:33)
[2025-06-12 06:18] LABS: BASOPHILS PERCENT AUTO 0.2 % (0.0-1.0); EOSINOPHILS PERCENT AUTO 0.0 % (1.0-3.0); LYMPHOCYTES PERCENT AUTO 4.9 % (20.5-50.1); MONOCYTES PERCENT AUTO 2.0 % (2-8); NEUTROPHILS PERCENT AUTO 92.9 % (42.2-75.2); PLATELET COUNT,PLT 362 10^3/uL (150-450); RED BLOOD CELL COUNT 4.31 10^6/uL (4.6-6.2); WHITE BLOOD CELL COUNT,WBC 8.8 10^3/uL (5.0-10.0)
[2025-06-12 06:41] LABS: A/G RATIO 1.2; ALANINE AMINOTRANSFERASE,ALT 40.0 U/L (16-63); ASPARTATE AMNIOTRANSFERASE,AST 15.0 U/L (15-37); BILIRUBIN TOTAL 0.5 mg/dL (0.2-1.0); BLOOD UREA NITROGEN,BUN 35.0 mg/dL (7-18); CARBON DIOXIDE,CO2 30.0 mmol/L (21-32); CHLORIDE,CL 102.0 mmol/L (98-107); CREATININE 0.78 mg/dL (0.70-1.30); EST CRCL DRUG DOSING (CG) 53.84 mL/min; GLUCOSE RANDOM 199.0 mg/dL (70-99); POTASSIUM,K 3.9 mmol/L (3.5-5.1); PROTEIN TOTAL,TP 6.3 g/dL (6.4-8.2); SODIUM,NA 139.0 mmol/L (136-145)
[2025-06-12 06:45] LABS: ESTIMATED GFR 92.0 mL/min (>=60)
[2025-06-12] MEDS: Potassium Chloride 10 MEQ Tab.ER PO ONE (17:45)
[2025-06-12] MEDS: Bumetanide 1 MG/4 ML MDV IVPUSH ONE (17:45)
[2025-06-13 06:27] LABS: BASOPHILS PERCENT AUTO 0.1 % (0.0-1.0); EOSINOPHILS PERCENT AUTO 0.0 % (1.0-3.0); LYMPHOCYTES PERCENT AUTO 2.8 % (20.5-50.1); MONOCYTES PERCENT AUTO 1.8 % (2-8); NEUTROPHILS PERCENT AUTO 95.3 % (42.2-75.2); PLATELET COUNT,PLT 352 10^3/uL (150-450); RED BLOOD CELL COUNT 4.12 10^6/uL (4.6-6.2); WHITE BLOOD CELL COUNT,WBC 14.2 10^3/uL (5.0-10.0)
[2025-06-13 06:49] LABS: A/G RATIO 1.4; ALANINE AMINOTRANSFERASE,ALT 35.0 U/L (16-63); ASPARTATE AMNIOTRANSFERASE,AST 11.0 U/L (15-37); BILIRUBIN TOTAL 0.4 mg/dL (0.2-1.0); BLOOD UREA NITROGEN,BUN 52.0 mg/dL (7-18); CARBON DIOXIDE,CO2 34.0 mmol/L (21-32); CHLORIDE,CL 103.0 mmol/L (98-107); CREATININE 1.08 mg/dL (0.70-1.30); EST CRCL DRUG DOSING (CG) 38.84 mL/min; GLUCOSE RANDOM 157.0 mg/dL (70-99); POTASSIUM,K 4.5 mmol/L (3.5-5.1); PROTEIN TOTAL,TP 6.7 g/dL (6.4-8.2); SODIUM,NA 142.0 mmol/L (136-145)
[2025-06-13 06:57] LABS: ESTIMATED GFR 71.0 mL/min (>=60)
[2025-06-13] MEDS: Bumetanide 1 MG/4 ML MDV IVPUSH ONE (11:54)
[2025-06-13 11:55] VITALS: BP 146/64
[2025-06-13 12:05] VITALS: PULSE 71
[2025-06-13] MEDS: Potassium Chloride 10 MEQ Tab.ER PO ONE (12:08)
== END 2025-06-13 16:00 | disposition home or self-care (01) | DRG 291 ==
LOC: DL.ED 09:03 → DL.MS 10:44
PROVIDERS: ADMIT Student in an Organized Health Care Education/Training Program; ATTEND Student in an Organized Health Care Education/Training Program
DX: I11.0 Hypertensive heart disease with heart failure (principal); I50.23 Acute on chronic systolic (congestive) heart failure; N39.0 Urinary tract infection, site not specified; E87.1 Hypo-osmolality and hyponatremia; J44.1 Chronic obstructive pulmonary disease with (acute) exacerbation; I48.91 Unspecified atrial fibrillation; H54.7 Unspecified visual loss; E87.70 Fluid overload, unspecified; F41.9 Anxiety disorder, unspecified; F32.A Depression, unspecified; N40.1 Benign prostatic hyperplasia with lower urinary tract symptoms; K21.9 Gastro-esophageal reflux disease without esophagitis; R33.9 Retention of urine, unspecified; D64.9 Anemia, unspecified; E80.6 Other disorders of bilirubin metabolism; E03.9 Hypothyroidism, unspecified; I10 Essential (primary) hypertension; Z88.2 Allergy status to sulfonamides; Z88.1 Allergy status to other antibiotic agents; Z88.5 Allergy status to narcotic agent; Z79.51 Long term (current) use of inhaled steroids; Z79.01 Long term (current) use of anticoagulants; Z79.84 Long term (current) use of oral hypoglycemic drugs; Z98.890 Other specified postprocedural states; Z97.8 Presence of other specified devices; Z88.8 Allergy status to other drugs, medicaments and biological substances; Z79.82 Long term (current) use of aspirin; Z79.899 Other long term (current) drug therapy
CPT/HCPCS: 36415; 51702; 51798; 71045; 80053; 81001; 82607; 82728; 82746; 83540; 83550; 83735; 83880; 84100; 84439; 84443; 84484; 85025; 87086; 87088; 87186; 93005; 93010; 94010; 94060; 94640; 94667; 94668; 96374; 97110-GO; 97110-GP; 97161-GP; 97165-GO; 97530-GO; 99223; 99232; 99233; 99238; 99284; 99285-25; A9270-GY; J0696; J1938; J2919; J3490

== ENCOUNTER 2025-06-15 16:16 | Emergency (ER) | payer MEDICARE, MEDICAID | END 2025-06-15 16:30 | disposition left against medical advice (07) | LOC: DL.ED 16:16 | DX: Z46.6 Encounter for fitting and adjustment of urinary device (principal) | CPT/HCPCS: 99281 ==

== ENCOUNTER 2025-06-22 19:27 | Emergency (ER) | payer OTHER, MEDICAID, MEDICARE ==
[2025-06-22 19:55] LABS: BASOPHILS PERCENT AUTO 0.7 % (0.0-1.0); EOSINOPHILS PERCENT AUTO 0.5 % (1.0-3.0); LYMPHOCYTES PERCENT AUTO 10.9 % (20.5-50.1); MONOCYTES PERCENT AUTO 8.7 % (2-8); NEUTROPHILS PERCENT AUTO 79.2 % (42.2-75.2); PLATELET COUNT,PLT 350 10^3/uL (150-450); RED BLOOD CELL COUNT 3.89 10^6/uL (4.6-6.2); WHITE BLOOD CELL COUNT,WBC 8.2 10^3/uL (5.0-10.0)
[2025-06-22] MEDS: Ondansetron 4 MG/2 ML SDV IVPUSH ONE ×2 (19:58→21:08)
[2025-06-22 20:11] LABS: B-TYPE NATRIURETIC PEPTIDE,BNP 1350.0 pg/ml (0-100)
[2025-06-22 20:19] LABS: A/G RATIO 1.2; ALANINE AMINOTRANSFERASE,ALT 37.0 U/L (16-63); ASPARTATE AMNIOTRANSFERASE,AST 25.0 U/L (15-37); BILIRUBIN TOTAL 1.1 mg/dL (0.2-1.0); BLOOD UREA NITROGEN,BUN 13.0 mg/dL (7-18); CARBON DIOXIDE,CO2 24.0 mmol/L (21-32); CHLORIDE,CL 102.0 mmol/L (98-107); CREATININE 0.85 mg/dL (0.70-1.30); EST CRCL DRUG DOSING (CG) 53.23 mL/min; GLUCOSE RANDOM 119.0 mg/dL (70-99); POTASSIUM,K 3.6 mmol/L (3.5-5.1); PROTEIN TOTAL,TP 6.6 g/dL (6.4-8.2); SODIUM,NA 137.0 mmol/L (136-145)
[2025-06-22 20:20] LABS: ESTIMATED GFR 90.0 mL/min (>=60); LACTIC ACID 2.0 mmol/L (0.4-2.0)
[2025-06-22 20:33] LABS: APPEARANCE,URINE SLIGHTLY CLOUDY (CLEAR); GLUCOSE,URINE 500 (NEGATIVE); OCCULT BLOOD,URINE LARGE (NEGATIVE)
[2025-06-22 21:07] VITALS: BP 134/100; PULSE 103
[2025-06-22] MEDS: Take Home: Ondansetron 4 MG Tab.DIS, 5 Tab Pack PO ONE (22:04)
== END 2025-06-22 22:20 | disposition home or self-care (01) ==
LOC: DL.ED 19:27
DX: K52.9 Noninfective gastroenteritis and colitis, unspecified (principal); I48.91 Unspecified atrial fibrillation; I10 Essential (primary) hypertension; K21.9 Gastro-esophageal reflux disease without esophagitis; Z88.5 Allergy status to narcotic agent; Z88.8 Allergy status to other drugs, medicaments and biological substances; Z79.82 Long term (current) use of aspirin; Z79.899 Other long term (current) drug therapy
CPT/HCPCS: 36415; 80053; 81001; 83605; 83690; 83735; 83880; 84484; 85025; 93005; 93010; 96361; 96374; 96376; 99284; A9270; J2405; J7040; Q0162

== ENCOUNTER 2025-06-26 15:22 | Emergency (ER) | payer MEDICARE, MEDICAID ==
[2025-06-26 15:59] LABS: BASOPHILS PERCENT AUTO 0.3 % (0.0-1.0); EOSINOPHILS PERCENT AUTO 0.5 % (1.0-3.0); LYMPHOCYTES PERCENT AUTO 8.8 % (20.5-50.1); MONOCYTES PERCENT AUTO 7.5 % (2-8); NEUTROPHILS PERCENT AUTO 82.9 % (42.2-75.2); PLATELET COUNT,PLT 358 10^3/uL (150-450); RED BLOOD CELL COUNT 4.31 10^6/uL (4.6-6.2); WHITE BLOOD CELL COUNT,WBC 8.6 10^3/uL (5.0-10.0)
[2025-06-26 16:17] LABS: INR 1.0 (0.9-1.2)
[2025-06-26 16:21] LABS: B-TYPE NATRIURETIC PEPTIDE,BNP 1940 pg/ml (0-100)
[2025-06-26 16:31] LABS: A/G RATIO 1.2; ALANINE AMINOTRANSFERASE,ALT 40 U/L (16-63); ASPARTATE AMNIOTRANSFERASE,AST 25 U/L (15-37); BILIRUBIN TOTAL 0.9 mg/dL (0.2-1.0); BLOOD UREA NITROGEN,BUN 13 mg/dL (7-18); CARBON DIOXIDE,CO2 26 mmol/L (21-32); CHLORIDE,CL 101 mmol/L (98-107); CREATININE 0.83 mg/dL (0.70-1.30); GLUCOSE RANDOM 121 mg/dL (70-99); POTASSIUM,K 3.7 mmol/L (3.5-5.1); PROTEIN TOTAL,TP 7.0 g/dL (6.4-8.2); SODIUM,NA 136 mmol/L (136-145)
[2025-06-26 16:32] LABS: ESTIMATED GFR 90 mL/min (>=60)
[2025-06-26] MEDS: Furosemide 40 MG/4 ML VIAL IVPUSH ONE (16:51)
[2025-06-26 17:58] VITALS: BP 155/107; PULSE 92
[2025-06-26] MEDS: Metoprolol Tartrate 5 MG/5 ML SDV IVPUSH ONE (17:58)
[2025-06-26] MEDS: Dexamethasone 4 MG/ML SDV IVPUSH ONE (17:58)
== END 2025-06-26 18:47 | disposition home or self-care (01) ==
LOC: DL.ED 15:22
DX: E87.70 Fluid overload, unspecified (principal); I48.91 Unspecified atrial fibrillation; I11.0 Hypertensive heart disease with heart failure; I50.9 Heart failure, unspecified; J44.9 Chronic obstructive pulmonary disease, unspecified; Z88.8 Allergy status to other drugs, medicaments and biological substances; Z88.0 Allergy status to penicillin; Z88.5 Allergy status to narcotic agent; Z79.82 Long term (current) use of aspirin; Z79.899 Other long term (current) drug therapy; Z79.01 Long term (current) use of anticoagulants
CPT/HCPCS: 36415; 71045; 80053; 83880; 84484; 85025; 85610; 93005; 94640; 94762; 96374; 96375; 99285; A9270; J1100; J1938; J3490

== ENCOUNTER 2025-07-09 14:26 | Emergency (ER) | payer MEDICARE, MEDICAID ==
[2025-07-09 16:23] VITALS: PULSE 85
== END 2025-07-09 15:06 | disposition home or self-care (01) ==
LOC: DL.ED 14:26
DX: T83.031A Leakage of indwelling urethral catheter, initial encounter (principal); I48.91 Unspecified atrial fibrillation; I10 Essential (primary) hypertension; K21.9 Gastro-esophageal reflux disease without esophagitis; Z88.0 Allergy status to penicillin; Z88.5 Allergy status to narcotic agent; Z88.8 Allergy status to other drugs, medicaments and biological substances; Z79.82 Long term (current) use of aspirin; Z79.899 Other long term (current) drug therapy; Z79.01 Long term (current) use of anticoagulants; Z79.890 Hormone replacement therapy; Y84.6 Urinary catheterization as the cause of abnormal reaction of the patient, or of later complication, without mention of misadventure at the time of the procedure
CPT/HCPCS: 99282; 99283

== ENCOUNTER 2025-07-21 15:51 | Emergency (ER) | payer MEDICARE, MEDICAID ==
[2025-07-21 16:31] LABS: APPEARANCE,URINE TURBID (CLEAR); GLUCOSE,URINE NEGATIVE (NEGATIVE); OCCULT BLOOD,URINE LARGE (NEGATIVE)
[2025-07-21 16:39] LABS: EPITHELIAL CELLS,URINE NOT SEEN /HPF (NOT SEEN)
[2025-07-21] MEDS: cefTRIAXone 1 GM, Lidocaine 1% 2.1 ML IM ONE (16:40)
[2025-07-21 17:45] VITALS: BP 123/84; PULSE 95
== END 2025-07-21 16:48 | disposition home or self-care (01) ==
LOC: DL.ED 15:51
DX: N30.01 Acute cystitis with hematuria (principal); I10 Essential (primary) hypertension; I48.91 Unspecified atrial fibrillation; K21.9 Gastro-esophageal reflux disease without esophagitis; Z88.0 Allergy status to penicillin; Z88.5 Allergy status to narcotic agent; Z88.8 Allergy status to other drugs, medicaments and biological substances; Z79.82 Long term (current) use of aspirin; Z79.899 Other long term (current) drug therapy; Z79.01 Long term (current) use of anticoagulants
CPT/HCPCS: 51702; 81001; 87086; 87088; 87186; 96372; 99283; 99284; C1758; J0696; J2003

== ENCOUNTER 2025-07-22 13:39 | Emergency (ER) | payer MEDICARE, MEDICAID ==
[2025-07-22] MEDS ORDERED: Sodium Chloride 0.9% 10 ML Syringe FLUSH PRN (14:01)
[2025-07-22] MEDS: Metoprolol Tartrate 5 MG/5 ML SDV IVPUSH ONE ×2 (14:08→17:24)
[2025-07-22 14:10] LABS: BASOPHILS PERCENT AUTO 0.5 % (0.0-1.0); EOSINOPHILS PERCENT AUTO 0.5 % (1.0-3.0); LYMPHOCYTES PERCENT AUTO 13.0 % (20.5-50.1); MONOCYTES PERCENT AUTO 12.6 % (2-8); NEUTROPHILS PERCENT AUTO 73.4 % (42.2-75.2); PLATELET COUNT,PLT 370 10^3/uL (150-450); RED BLOOD CELL COUNT 4.04 10^6/uL (4.6-6.2); WHITE BLOOD CELL COUNT,WBC 7.5 10^3/uL (5.0-10.0)
[2025-07-22 14:24] LABS: INR 1.0 (0.9-1.2); PTT,PARTIAL THROMBOPLSTIN TIME 27.5 SEC (22.0-34.0)
[2025-07-22 14:27] LABS: ALANINE AMINOTRANSFERASE,ALT 21.0 U/L (16-63); ASPARTATE AMNIOTRANSFERASE,AST 31.0 U/L (15-37); BILIRUBIN TOTAL 0.7 mg/dL (0.2-1.0); BLOOD UREA NITROGEN,BUN 11.0 mg/dL (7-18); CARBON DIOXIDE,CO2 27.0 mmol/L (21-32); CHLORIDE,CL 103.0 mmol/L (98-107); CREATININE 0.73 mg/dL (0.70-1.30); EST CRCL DRUG DOSING (CG) 63.83 mL/min; GLUCOSE RANDOM 109.0 mg/dL (70-99); POTASSIUM,K 4.0 mmol/L (3.5-5.1); PROTEIN TOTAL,TP 6.7 g/dL (6.4-8.2); SODIUM,NA 139.0 mmol/L (136-145); TSH ULTRASENSITIVE 6.85 uIU/mL (0.36-3.74)
[2025-07-22 14:30] LABS: A/G RATIO 0.97; B-TYPE NATRIURETIC PEPTIDE,BNP 1190.0 pg/ml (0-100); ESTIMATED GFR 94.0 mL/min (>=60); LACTIC ACID 2.1 mmol/L (0.4-2.0)
[2025-07-22 15:52] VITALS: BP 139/116; PULSE 110
== END 2025-07-22 17:05 | disposition home or self-care (01) ==
LOC: DL.ED 13:39
DX: R51.9 Headache, unspecified (principal); I11.0 Hypertensive heart disease with heart failure; I48.91 Unspecified atrial fibrillation; F41.9 Anxiety disorder, unspecified; Z88.1 Allergy status to other antibiotic agents; Z88.5 Allergy status to narcotic agent; Z79.82 Long term (current) use of aspirin; Z79.890 Hormone replacement therapy; Z79.899 Other long term (current) drug therapy
CPT/HCPCS: 36415; 70450; 71045; 80053; 83605; 83735; 83880; 84443; 84484; 85025; 85610; 85730; 86140; 93010; 96374; 99284; 99285-25; A9270-GY; J3490

== ENCOUNTER 2025-08-31 15:33 | Emergency (ER) | payer MEDICARE, MEDICAID ==
[2025-08-31 16:26] LABS: APPEARANCE,URINE CLOUDY (CLEAR); GLUCOSE,URINE NEGATIVE (NEGATIVE); OCCULT BLOOD,URINE LARGE (NEGATIVE)
[2025-08-31] MEDS: Nitrofurantoin Monohydrate/Macrocrystalline 100 MG Cap PO ONE (16:42)
[2025-08-31 16:48] LABS: SQUAMOUS EPITHELIAL CELLS,UR FEW /HPF (NOT SEEN)
[2025-08-31 16:50] VITALS: BP 151/98; PULSE 95
== END 2025-08-31 16:49 | disposition home or self-care (01) ==
LOC: DL.ED 15:33
DX: N39.0 Urinary tract infection, site not specified (principal); I10 Essential (primary) hypertension; I48.91 Unspecified atrial fibrillation; Z88.5 Allergy status to narcotic agent; Z88.8 Allergy status to other drugs, medicaments and biological substances; Z79.82 Long term (current) use of aspirin; Z79.890 Hormone replacement therapy; Z79.899 Other long term (current) drug therapy
CPT/HCPCS: 81001; 87086; 87088; 87186; 99283; A9270-GY

== ENCOUNTER 2025-09-04 10:30 | Inpatient (IN) | payer MEDICARE, MEDICAID ==
[2025-09-04 11:04] LABS: BASOPHILS PERCENT AUTO 0.6 % (0.0-1.0); EOSINOPHILS PERCENT AUTO 1.5 % (1.0-3.0); LYMPHOCYTES PERCENT AUTO 13.4 % (20.5-50.1); MONOCYTES PERCENT AUTO 8.5 % (2-8); NEUTROPHILS PERCENT AUTO 76.0 % (42.2-75.2); PLATELET COUNT,PLT 308 10^3/uL (150-450); RED BLOOD CELL COUNT 4.07 10^6/uL (4.6-6.2); WHITE BLOOD CELL COUNT,WBC 6.5 10^3/uL (5.0-10.0)
[2025-09-04 11:17] LABS: B-TYPE NATRIURETIC PEPTIDE,BNP 1260.0 pg/ml (0-100)
[2025-09-04] MEDS: Metoprolol Tartrate 5 MG/5 ML SDV IVPUSH ONE (11:17)
[2025-09-04 11:28] LABS: ALANINE AMINOTRANSFERASE,ALT 17.0 U/L (16-63); ASPARTATE AMNIOTRANSFERASE,AST 22.0 U/L (15-37); BILIRUBIN TOTAL 0.6 mg/dL (0.2-1.0); BLOOD UREA NITROGEN,BUN 11.0 mg/dL (7-18); CARBON DIOXIDE,CO2 26.0 mmol/L (21-32); CHLORIDE,CL 105.0 mmol/L (98-107); CREATININE 0.99 mg/dL (0.70-1.30); EST CRCL DRUG DOSING (CG) 48.51 mL/min; GLUCOSE RANDOM 98.0 mg/dL (70-99); POTASSIUM,K 3.7 mmol/L (3.5-5.1); PROTEIN TOTAL,TP 6.2 g/dL (6.4-8.2); SODIUM,NA 136.0 mmol/L (136-145)
[2025-09-04 11:30] LABS: A/G RATIO 0.94; ESTIMATED GFR 78.0 mL/min (>=60)
[2025-09-04] MEDS: Furosemide 40 MG/4 ML VIAL IVPUSH ONE (11:46)
[2025-09-04] MEDS: methylPREDNISolone Sodium Succinate 125 MG/2 ML SDV IVPUSH ONE (13:06)
[2025-09-04] MEDS ORDERED: Ondansetron 4 MG/2 ML SDV IVPUSH PRN (14:19)
[2025-09-04] MEDS ORDERED: Sennosides/Docusate Sodium 50-8.6 MG Tab PO PRN (14:19)
[2025-09-04 15:13] LABS: T4 FREE 0.93 ng/dL (0.76-1.46); TSH ULTRASENSITIVE 10.79 uIU/mL (0.36-3.74)
[2025-09-04] MEDS: Amylase/Lipase/Protease 12,000 Unit Cap.CR PO SCH (16:41)
[2025-09-04] MEDS: Bumetanide 1 MG/4 ML MDV IVPUSH STA (18:06)
[2025-09-04] MEDS: Potassium Chloride 10 MEQ Tab.ER PO STA (18:06)
[2025-09-04] MEDS: methylPREDNISolone Sodium Succinate 125 MG/2 ML SDV IVPUSH SCH (21:15)
[2025-09-04] MEDS: Fluticasone NASAL Spray 16 GM Bottle NASBOTH SCH (21:21)
[2025-09-04] MEDS: Formoterol/Mometasone 200-5 MCG 8.8 GM Inhaler INH SCH (21:26)
[2025-09-04] MEDS: Metoprolol Tartrate 5 MG/5 ML SDV IVPUSH PRN (23:49)
[2025-09-05 06:49] LABS: BASOPHILS PERCENT AUTO 0.7 % (0.0-1.0); EOSINOPHILS PERCENT AUTO 0.0 % (1.0-3.0); LYMPHOCYTES PERCENT AUTO 8.8 % (20.5-50.1); MONOCYTES PERCENT AUTO 0.7 % (2-8); NEUTROPHILS PERCENT AUTO 89.8 % (42.2-75.2); PLATELET COUNT,PLT 358 10^3/uL (150-450); RED BLOOD CELL COUNT 4.46 10^6/uL (4.6-6.2); WHITE BLOOD CELL COUNT,WBC 4.6 10^3/uL (5.0-10.0)
[2025-09-05] MEDS: Formoterol/Mometasone 200-5 MCG 8.8 GM Inhaler INH SCH (07:00)
[2025-09-05 07:15] LABS: A/G RATIO 0.79; ALANINE AMINOTRANSFERASE,ALT 16.0 U/L (16-63); ASPARTATE AMNIOTRANSFERASE,AST 14.0 U/L (15-37); BILIRUBIN TOTAL 0.6 mg/dL (0.2-1.0); BLOOD UREA NITROGEN,BUN 18.0 mg/dL (7-18); CARBON DIOXIDE,CO2 28.0 mmol/L (21-32); CHLORIDE,CL 108.0 mmol/L (98-107); CREATININE 0.98 mg/dL (0.70-1.30); EST CRCL DRUG DOSING (CG) 42.85 mL/min; ESTIMATED GFR 79.0 mL/min (>=60); GLUCOSE RANDOM 152.0 mg/dL (70-99); POTASSIUM,K 3.8 mmol/L (3.5-5.1); PROTEIN TOTAL,TP 5.9 g/dL (6.4-8.2); SODIUM,NA 146.0 mmol/L (136-145)
[2025-09-05] MEDS ORDERED: Potassium Chloride 10 MEQ Tab.ER PO SCH (09:00)
[2025-09-05] MEDS: methylPREDNISolone Sodium Succinate 40 MG/1 ML SDV IVPUSH SCH (10:03)
[2025-09-05] MEDS: Bumetanide 1 MG/4 ML MDV IVPUSH ONE (10:07)
[2025-09-05] MEDS: Potassium Chloride 10 MEQ Tab.ER PO SCH (10:19)
[2025-09-06 06:12] LABS: BASOPHILS PERCENT AUTO 0.3 % (0.0-1.0); EOSINOPHILS PERCENT AUTO 0.0 % (1.0-3.0); LYMPHOCYTES PERCENT AUTO 3.5 % (20.5-50.1); MONOCYTES PERCENT AUTO 2.1 % (2-8); NEUTROPHILS PERCENT AUTO 94.1 % (42.2-75.2); PLATELET COUNT,PLT 318 10^3/uL (150-450); RED BLOOD CELL COUNT 3.88 10^6/uL (4.6-6.2); WHITE BLOOD CELL COUNT,WBC 12.0 10^3/uL (5.0-10.0)
[2025-09-06 06:32] LABS: ALANINE AMINOTRANSFERASE,ALT 12.0 U/L (16-63); ASPARTATE AMNIOTRANSFERASE,AST 8.0 U/L (15-37); BILIRUBIN TOTAL 0.3 mg/dL (0.2-1.0); BLOOD UREA NITROGEN,BUN 45.0 mg/dL (7-18); CARBON DIOXIDE,CO2 28.0 mmol/L (21-32); CHLORIDE,CL 108.0 mmol/L (98-107); CREATININE 1.17 mg/dL (0.70-1.30); EST CRCL DRUG DOSING (CG) 35.82 mL/min; GLUCOSE RANDOM 144.0 mg/dL (70-99); POTASSIUM,K 4.5 mmol/L (3.5-5.1); PROTEIN TOTAL,TP 5.4 g/dL (6.4-8.2); SODIUM,NA 144.0 mmol/L (136-145)
[2025-09-06 06:42] LABS: A/G RATIO 0.86; ESTIMATED GFR 64.0 mL/min (>=60)
[2025-09-07 06:17] LABS: BASOPHILS PERCENT AUTO 0.4 % (0.0-1.0); EOSINOPHILS PERCENT AUTO 0.0 % (1.0-3.0); LYMPHOCYTES PERCENT AUTO 9.7 % (20.5-50.1); MONOCYTES PERCENT AUTO 6.0 % (2-8); NEUTROPHILS PERCENT AUTO 83.9 % (42.2-75.2); PLATELET COUNT,PLT 295 10^3/uL (150-450); RED BLOOD CELL COUNT 3.91 10^6/uL (4.6-6.2); WHITE BLOOD CELL COUNT,WBC 10.9 10^3/uL (5.0-10.0)
[2025-09-07 06:47] LABS: ALANINE AMINOTRANSFERASE,ALT 12.0 U/L (16-63); ASPARTATE AMNIOTRANSFERASE,AST 12.0 U/L (15-37); BILIRUBIN TOTAL 0.3 mg/dL (0.2-1.0); BLOOD UREA NITROGEN,BUN 36.0 mg/dL (7-18); CARBON DIOXIDE,CO2 27.0 mmol/L (21-32); CHLORIDE,CL 109.0 mmol/L (98-107); CREATININE 0.97 mg/dL (0.70-1.30); EST CRCL DRUG DOSING (CG) 43.37 mL/min; GLUCOSE RANDOM 85.0 mg/dL (70-99); POTASSIUM,K 4.2 mmol/L (3.5-5.1); PROTEIN TOTAL,TP 5.4 g/dL (6.4-8.2); SODIUM,NA 143.0 mmol/L (136-145)
[2025-09-07 06:54] LABS: A/G RATIO 0.8; ESTIMATED GFR 80.0 mL/min (>=60)
[2025-09-07] MEDS: Sodium Chloride 0.9% 10 ML Syringe FLUSH PRN (08:34)
[2025-09-07] MEDS: Potassium Chloride 10 MEQ Tab.ER PO STA (08:57)
[2025-09-07] MEDS: Bumetanide 1 MG/4 ML MDV IVPUSH STA (08:59)
[2025-09-07] MEDS: Metoprolol Tartrate 5 MG/5 ML SDV IVPUSH ONE (18:12)
[2025-09-08 06:58] LABS: BASOPHILS PERCENT AUTO 0.3 % (0.0-1.0); EOSINOPHILS PERCENT AUTO 1.1 % (1.0-3.0); LYMPHOCYTES PERCENT AUTO 18.5 % (20.5-50.1); MONOCYTES PERCENT AUTO 9.8 % (2-8); NEUTROPHILS PERCENT AUTO 70.3 % (42.2-75.2); PLATELET COUNT,PLT 303 10^3/uL (150-450); RED BLOOD CELL COUNT 4.13 10^6/uL (4.6-6.2); WHITE BLOOD CELL COUNT,WBC 7.0 10^3/uL (5.0-10.0)
[2025-09-08 07:19] LABS: ALANINE AMINOTRANSFERASE,ALT 18.0 U/L (16-63); ASPARTATE AMNIOTRANSFERASE,AST 12.0 U/L (15-37); BILIRUBIN TOTAL 0.4 mg/dL (0.2-1.0); BLOOD UREA NITROGEN,BUN 37.0 mg/dL (7-18); CARBON DIOXIDE,CO2 32.0 mmol/L (21-32); CHLORIDE,CL 107.0 mmol/L (98-107); CREATININE 0.9 mg/dL (0.70-1.30); EST CRCL DRUG DOSING (CG) 47.19 mL/min; GLUCOSE RANDOM 79.0 mg/dL (70-99); POTASSIUM,K 3.8 mmol/L (3.5-5.1); PROTEIN TOTAL,TP 5.4 g/dL (6.4-8.2); SODIUM,NA 144.0 mmol/L (136-145)
[2025-09-08 07:21] LABS: A/G RATIO 0.8; ESTIMATED GFR 88.0 mL/min (>=60)
[2025-09-08 11:16] VITALS: BP 117/45; PULSE 95
== END 2025-09-08 12:48 | disposition home health service (06) | DRG 291 ==
LOC: DL.ED 10:30 → DL.MS 13:06
PROVIDERS: ADMIT Student in an Organized Health Care Education/Training Program; ATTEND Student in an Organized Health Care Education/Training Program
DX: I11.0 Hypertensive heart disease with heart failure (principal); I50.21 Acute systolic (congestive) heart failure; I50.9 Heart failure, unspecified; J18.9 Pneumonia, unspecified organism; J44.9 Chronic obstructive pulmonary disease, unspecified; J44.1 Chronic obstructive pulmonary disease with (acute) exacerbation; K86.1 Other chronic pancreatitis; Z88.0 Allergy status to penicillin; Z88.8 Allergy status to other drugs, medicaments and biological substances; N30.01 Acute cystitis with hematuria; J44.0 Chronic obstructive pulmonary disease with (acute) lower respiratory infection; E03.9 Hypothyroidism, unspecified; F32.A Depression, unspecified; H54.7 Unspecified visual loss; M19.90 Unspecified osteoarthritis, unspecified site; F41.9 Anxiety disorder, unspecified; K21.9 Gastro-esophageal reflux disease without esophagitis; D64.9 Anemia, unspecified; I48.0 Paroxysmal atrial fibrillation; R00.1 Bradycardia, unspecified; Z79.01 Long term (current) use of anticoagulants; Z79.899 Other long term (current) drug therapy; Z79.1 Long term (current) use of non-steroidal anti-inflammatories (NSAID); Z79.890 Hormone replacement therapy; Z79.82 Long term (current) use of aspirin; Z99.81 Dependence on supplemental oxygen
CPT/HCPCS: 36415; 71046; 80053; 80162; 83605; 83690; 83735; 83880; 84439; 84443; 84484; 85025; 87040; 87428-QW; 93005; 93010; 94010; 94667; 96374; 96375; 97161-GP; 97165-GO; 99223; 99232; 99238; 99285; 99285-25; A9270-GY; J0616; J0692; J1938; J1939; J2470; J2919